=== PATIENT | female | born 1960 | race American Indian/Alaskan Native ===

== ENCOUNTER 2017-12-18 18:41 | Observation (INO) | payer BC ==
[2017-12-18 19:20] VITALS: BMI 20.2
[2017-12-18] MEDS ORDERED: Morphine 2 mg/ml ISec IVP STA (19:50)
[2017-12-18] MEDS ORDERED: Sodium Chloride 0.9% 1,000 ML IV STA (19:50)
[2017-12-18 20:04] LABS: HEMOGLOBIN 13.8 g/dL (12.0-16.0); MEAN CORPUSCULAR HEMOGLOBIN 30.2 pg (25.0-35.0); MEAN CORPUSCULAR HGB CONC 33.2 g/dl (31.0-37.0); MEAN PLATELET VOLUME 9.4 fl (7.0-11.0); RBC 4.57 10^6/uL (3.5-6.1); RED CELL DISTRIBUTION WIDTH 12.5 % (11.5-14.5); WHITE BLOOD COUNT 7.6 10^3/ul (4.5-11.0)
[2017-12-18 20:12] LABS: ALB/GLOB RATIO 1.5 (1.1-1.8); ALT/SGPT 24 U/L (7-56); AST/SGOT 32 U/L (14-36); BLOOD UREA NITROGEN 16 mg/dL (7-21); CALCIUM 10.8 mg/dL (8.4-10.5); GFR AFRICAN-AMERICAN > 60; GFR NON-AFRICAN AMERICAN > 60; LIPASE 29 U/L (23-300)
--- NOTE | 2017-12-18 20:26 | ED PDOC ---
Arrival/HPI - General Chief Complaint: Abdominal Pain Time Seen by Provider: 12/18/17 19:43 Historian: Patient - History of Present Illness Narrative History of Present Illness (Text): 12/18/17 19:45 Ludivina Montenegro is a 57 year old female who presents to the emergency department complaining of onset of multiple episodes of vomiting with associated nausea and abdominal discomfort for the past few days. Patient states that she had eaten at a fast food restaurant prior to onset of symptoms. Patient notes that she has had similar symptoms occurring to her every few months it seems. Patient states that she was prescribed an anti-emetic by PMD over the weekend with no significant relief. Patient denies any diarrhea, fever, chills, or any other complaints at this time. Past Medical History - Provider Review Nursing Documentation Reviewed: Yes - Infectious Disease Hx of Infectious Diseases: None - Tetanus Immunization Tetanus Immunization: Unknown - Reproductive Menopause: Yes - Cardiac Hx Cardiac Disorders: No - Pulmonary Hx Respiratory Disorders: No - Neurological Hx Neurological Disorder: No - HEENT Hx HEENT Disorder: No - Renal Hx Renal Disorder: No - Endocrine/Metabolic Hx Endocrine Disorders: No - Hematological/Oncological Hx Blood Disorders: No - Integumentary Hx Dermatological Disorder: No - Musculoskeletal/Rheumatological Hx Falls: No - Gastrointestinal Hx Gastrointestinal Disorders: Yes Other/Comment: hx stomach virus - Genitourinary/Gynecological Hx Genitourinary Disorders: No - Psychiatric Hx Psychophysiologic Disorder: No Hx Substance Use: No - Surgical History Hx Appendectomy: Yes - Anesthesia Hx Anesthesia: No Hx Anesthesia Reactions: No Hx Malignant Hyperthermia: No - Suicidal Assessment Feels Threatened In Home Enviroment: No Family/Social History - Physician Review Nursing Documentation Reviewed: Yes Family/Social History: No Known Family HX Smoking Status: Light Smoker < 10 Cigarettes Daily Hx Alcohol Use: No Hx Substance Use: No Hx Substance Use Treatment: Yes Allergies/Home Meds Allergies/Adverse Reactions: Allergies No Known Allergies Allergy (Verified 11/18/14 10:53) Home Medications: Home Meds Medication Instructions Recorded Confirmed No Known Home Med 12/18/17 12/18/17 Review of Systems - Physician Review All systems were reviewed & negative as marked: Yes - Review of Systems Constitutional: absent: Fevers, Night Sweats Eyes: absent: Vision Changes ENT: absent: Hearing Changes Respiratory: absent: SOB, Cough Gastrointestinal: Abdominal Pain (abdominal discomfort), Nausea, Vomiting Genitourinary Female: absent: Dysuria, Frequency Musculoskeletal: absent: Arthralgias Skin: absent: Rash, Pruritis Neurological: absent: Headache, Dizziness Endocrine: absent: Diaphoresis Hemo/Lymphatic: absent: Adenopathy Psychiatric: absent: Anxiety, Depression Physical Exam Vital Signs Reviewed: Yes Vital Signs Temp Pulse Resp BP Pulse Ox 12/18/17 18:41 98.6 F 75 18 116/82 97 Temperature: Afebrile Blood Pressure: Normal Pulse: Regular Respiratory Rate: Normal Appearance: Positive for: Well-Appearing, Non-Toxic, Comfortable Pain Distress: None Mental Status: Positive for: Alert and Oriented X 3 - Systems Exam Head: Present: Atraumatic, Normocephalic Pupils: Present: PERRL Extroacular Muscles: Present: EOMI Conjunctiva: Present: Normal Mouth: Present: Dry Neck: Present: Normal Range of Motion Respiratory/Chest: Present: Clear to Auscultation, Good Air Exchange. No: Respiratory Distress, Accessory Muscle Use Cardiovascular: Present: Regular Rate and Rhythm, Normal S1, S2. No: Murmurs Abdomen: Present: Normal Bowel Sounds. No: Tenderness, Distention, Peritoneal Signs Back: Present: Normal Inspection Upper Extremity: Present: Normal Inspection. No: Cyanosis, Edema Lower Extremity: Present: Normal Inspection. No: Edema Neurological: Present: GCS=15, CN II-XII Intact, Speech Normal Skin: Present: Warm, Dry, Normal Color. No: Rashes Psychiatric: Present: Alert, Oriented x 3, Normal Insight, Normal Concentration Medical Decision Making ED Course and Treatment: 12/18/17 20:27 Impression: 57 year old female complaining of onset of vomiting, nausea, and abdominal discomfort for the past few days. Plan: -- Urinalysis -- Morphine, Pepcid, Zofran, and IV fluids -- Reassess and disposition Prior Visits: Notes and results from previous visits were reviewed. Patient was last seen in the emergency department on 09/13/17 for nausea, vomiting, and diffuse abdominal pain. Patient was admitted to hospitalist care for further evaluation. Progress Notes: EXAM: CT Abdomen and Pelvis With Intravenous Contrast Dictated and Authenticated by: Montana Caba MD 12/19/2017 12:46 AM IMPRESSION: 1. There is wall thickening of the body of the stomach as well as the proximal duodenum, suggestive of gastroenteritis. 2. There is wall thickening of the ascending colon with a small diverticulum and mild stable pericolonic stranding. These findings are consistent with colitis or diverticulitis. Additional colonic wall thickening is identified, consistent with incomplete distention or colitis. Due to the persistence of colonic wall thickening, colonoscopy is suggested. 3. There is stable nonspecific thickening of the left adrenal gland. 4. Within the right hepatic lobe on series 3 image 48, there is a 1.7 x 1.3 cm hyperdense lesion, not visualized on the prior study. Also within the right hepatic lobe, there is a 6- 7 mm hypodense lesion, too small to characterize further. A nonemergent MRI of the abdomen with contrast is recommended. 5. The common bile duct measures 7-8 mm in diameter, which is borderline dilated. Mild intrahepatic biliary dilatation is visualized. No discrete gallstones are visualized within the gallbladder. Correlation with serum bilirubin is recommended. 6. Incidental/non-acute findings are described above. 12/19/17 01:11 Case was d/w /He accepted to his service. on consult. - Lab Interpretations Lab Results: 12/18/17 19:49 12/18/17 19:49 Lab Results 12/18/17 23:20: Urine Color Yellow, Urine Appearance Clear, Urine pH 6.0, Ur Specific Andrews >= 1.030, Urine Protein 100 H, Urine Glucose (UA) Negative, Urine Ketones >=80, Urine Blood Negative, Urine Nitrate Negative, Urine Bilirubin Small H, Urine Urobilinogen 0.2, Ur Leukocyte Esterase Negative, Urine RBC 0 - 2, Urine WBC 1 - 3, Ur Epithelial Cells 0 - 2, Urine Bacteria Few 12/18/17 19:49: WBC 7.6, RBC 4.57, Hgb 13.8 D, Hct 41.6, MCV 91.0, MCH 30.2, MCHC 33.2, RDW 12.5, Plt Count 261, MPV 9.4 12/18/17 19:49: Sodium 143, Potassium 3.5 L, Chloride 102, Carbon Dioxide 25, Anion Gap 19, BUN 16, Creatinine 0.7, Est GFR ( Amer) > 60, Est GFR (Non- Af Amer) > 60, Random Glucose 122 H, Calcium 10.8 H, Total Bilirubin 0.5, AST 32 , ALT 24, Alkaline Phosphatase 88, Total Protein 8.4 H, Albumin 5.0 H, Globulin 3.4, Albumin/Globulin Ratio 1.5, Lipase 29 I have reviewed the lab results: Yes - RAD Interpretation Radiology Orders: 12/18/17 22:47 ABD & PELVIS IV CONTRAST ONLY [CT] Stat - Medication Orders Current Medication Orders: Ciprofloxacin (Cipro) 500 mg PO ONCE STA PRN Reason: Protocol Stop: 12/19/17 01:09 Metronidazole (Flagyl) 500 mg in 100 mls @ 100 mls/hr IVPB STAT STA PRN Reason: Protocol Stop: 12/19/17 02:07 Discontinued Medications Famotidine (Pepcid) 20 mg IVP STAT STA Stop: 12/18/17 19:51 Last Admin: 12/18/17 20:04 Dose: 20 mg IVP Administration Document 12/18/17 20:04 SELINA (Rec: 12/18/17 20:04 SELINA [id number]) Charges for Administration # of IVP Administrations 1 Sodium Chloride (Sodium Chloride 0.9%) 1,000 mls @ 999 mls/hr IV .Q1H1M STA Stop: 12/18/17 20:50 Last Admin: 12/18/17 20:06 Dose: 999 mls/hr eMAR Start Stop Document 12/18/17 20:06 SELINA (Rec: 12/18/17 20:06 SELINA [id number]) Intravenous Solution Start Date 12/18/17 Start Time 20:06 End Date 12/18/17 End time 21:06 Total Infusion Time 60 Morphine Sulfate (Morphine) 2 mg IVP STAT STA Stop: 12/18/17 19:51 Last Admin: 12/18/17 20:05 Dose: 2 mg MAR Pain Assessment Document 12/18/17 20:05 SELINA (Rec: 12/18/17 20:05 SELINA [id number]) Pain Reassessment Is this a pain reassessment? Yes IVP Administration Document 12/18/17 20:05 SELINA (Rec: 12/18/17 20:05 SELINA [id number]) Charges for Administration # of IVP Administrations 1 Ondansetron HCl (Zofran Inj) 4 mg IVP ONCE ONE Stop: 12/18/17 19:51 Last Admin: 12/18/17 20:05 Dose: 4 mg IVP Administration Document 12/18/17 20:05 SELINA (Rec: 12/18/17 20:05 SELINA [id number]) Charges for Administration # of IVP Administrations 1 - Scribe Statement The provider has reviewed the documentation as recorded by the Scribe Dia Zaragoza Provider Scribe Attestation: All medical record entries made by the Scribe were at my direction and personally dictated by me. I have reviewed the chart and agree that the record accurately reflects my personal performance of the history, physical exam, medical decision making, and the department course for this patient. I have also personally directed, reviewed, and agree with the discharge instructions and disposition. Disposition/Present on Arrival - Present on Arrival Any Indicators Present on Arrival: No History of DVT/PE: No History of Uncontrolled Diabetes: No Urinary Catheter: No History of Decub. Ulcer: No History Surgical Site Infection Following: None - Disposition Have Diagnosis and Disposition been Completed?: Yes Diagnosis: Colitis Disposition: HOSPITALIZED Disposition Time: 01:10 Patient Plan: Observation Patient Problems: Current Active Problems Problem Status Onset Colitis Acute Condition: STABLE Referrals: Fermin Bethea MD [Primary Care Provider] - Follow up with primary Forms: [employer] ([employer])
[2017-12-18] MEDS ORDERED: Iohexol 350 MG/100 ML VIAL ONE (22:51)
[2017-12-18 23:41] LABS: URINE BILIRUBIN SMALL (NEGATIVE); URINE BLOOD NEGATIVE (NEGATIVE); URINE GLUCOSE (UA) NEGATIVE (NEGATIVE); URINE LEUKOCYTE ESTERASE NEGATIVE Leu/uL (NEGATIVE); URINE NITRATE NEGATIVE (NEGATIVE); URINE PROTEIN 100 mg/dL (<30 mg/dL); URINE UROBILINOGEN 0.2 E.U./dL (<1 E.U./dL)
[2017-12-18 23:46] LABS: URINE APPEARANCE CLEAR (CLEAR); URINE COLOR YELLOW (YELLOW)
[2017-12-18 23:56] LABS: URINE BACTERIA FEW (NEG); URINE EPITHELIAL CELLS 0 - 2 /hpf (0-5); URINE RBC 0 - 2 /hpf (0-2)
--- NOTE | 2017-12-19 00:46 | CT ---
EXAM: CT Abdomen and Pelvis With Intravenous Contrast EXAM DATE/TIME: 12/18/2017 10:47 PM CLINICAL HISTORY: The patient age is 57 years old and is female; Pain; Abdominal pain; Acute Facility exam id and description: Ct abdpelciv abd pelvis iv contrast only TECHNIQUE: Axial computed tomography images of the abdomen and pelvis with intravenous contrast. All CT scans at this facility use one or more dose reduction techniques, viz.: automated exposure control; ma/kV adjustment per patient size (including targeted exams where dose is matched to indication; i.e. head); or iterative reconstruction technique. Coronal and sagittal reformatted images were created and reviewed. CONTRAST: 100 mL of OMNI administered intravenously. COMPARISON: CT - ABD PELVIS IV CONTRAST ONLY 2017-09-13 20:46 FINDINGS: Lower thorax: At the lateral right lung base, there is a 4 mm hyperdense calcified lung nodule. Mild atelectatic changes are visualized at the lung bases. ABDOMEN: Liver: Within the right hepatic lobe on series 3 image 48, there is a 1.7 x 1.3 cm hyperdense lesion, not visualized on the prior study. Also within the right hepatic lobe, there is a 6-7 mm hypodense lesion, too small to characterize further. There is low density identified within the medial segment of the left lobe of the liver adjacent to the falciform ligament. This is a common location for fatty infiltration. Gallbladder and bile ducts: The common bile duct measures 7-8 mm in diameter, which is borderline dilated. Mild intrahepatic biliary dilatation is visualized. No discrete gallstones are visualized within the gallbladder. Pancreas: Normal contour, without acute peripancreatic stranding. Spleen: No splenomegaly. Adrenals: There is stable nonspecific thickening of the left adrenal gland. Kidneys and ureters: No hydronephrosis. No solid mass. Stomach and bowel: There is wall thickening of the body of the stomach as well as the proximal duodenum, suggestive of gastroenteritis. There is wall thickening of the ascending colon with a small diverticulum and mild stable pericolonic stranding. These findings are consistent with colitis or diverticulitis. Additional colonic wall thickening is identified, consistent with incomplete distention or colitis. There is gaseous distention of the rectum. Appendix: The appendix is incompletely visualized. PELVIS: Bladder: The bladder is decompressed, which limits the evaluation. Reproductive: Unremarkable as visualized. ABDOMEN and PELVIS: Intraperitoneal space: No free air. Bones/joints: Facet arthropathy is identified within the lower lumbar spine. Degenerative changes are identified within the lumbar spine. Vasculature: Minimal atherosclerosis is visualized of the abdominal aorta. No abdominal aortic aneurysm. Lymph nodes: No enlarged lymph nodes. IMPRESSION: 1. There is wall thickening of the body of the stomach as well as the proximal duodenum, suggestive of gastroenteritis. 2. There is wall thickening of the ascending colon with a small diverticulum and mild stable pericolonic stranding. These findings are consistent with colitis or diverticulitis. Additional colonic wall thickening is identified, consistent with incomplete distention or colitis. Due to the persistence of colonic wall thickening, colonoscopy is suggested. 3. There is stable nonspecific thickening of the left adrenal gland. 4. Within the right hepatic lobe on series 3 image 48, there is a 1.7 x 1.3 cm hyperdense lesion, not visualized on the prior study. Also within the right hepatic lobe, there is a 6-7 mm hypodense lesion, too small to characterize further. A nonemergent MRI of the abdomen with contrast is recommended. 5. The common bile duct measures 7-8 mm in diameter, which is borderline dilated. Mild intrahepatic biliary dilatation is visualized. No discrete gallstones are visualized within the gallbladder. Correlation with serum bilirubin is recommended. 6. Incidental/non-acute findings are described above.
[2017-12-19] MEDS ORDERED: metroNIDAZOLE IV 500 mg/100 ml 500 MG/100 ML BAG IVPB STA (01:08)
[2017-12-19] MEDS ORDERED: Sodium Chloride 0.9% 1,000 ML IV STA (01:14)
[2017-12-19 08:25] VITALS: RESP 20
[2017-12-19] MEDS: Sodium Chloride 0.9% 1,000 ML IV SCH (13:42)
[2017-12-19] MEDS: metroNIDAZOLE IV 500 mg/100 ml 500 MG/100 ML BAG IVPB SCH ×2 (15:12→21:56)
[2017-12-19] MEDS: cefTRIAXone 1 gm 1 GM/100 ML BAG IVPB SCH (16:59)
--- NOTE | 2017-12-19 17:29 | CP.PCM.CON ---
<Jahaira Vann - Last Filed: 12/19/17 17:41> History of Present Illness - History of Present Illness History of Present Illness: S&E at bedside, chart reviewed. Request for GI consult is for abdominal pain/vomiting. HPI: This is a 57-year-old female with no pertinent past medical history except for stomach virus. Patient came to the emergency room with complaint of onset of multiple episodes of nausea with vomiting and abdominal discomfort left lower quadrant. The patient stated that this symptom started on Monday morning but was intermittent. After eating [employer] her symptoms got worse. She did not have any episodes of diarrhea and fact her last bowel movement was last Monday. She reports that she normally has a regular bowel movement but the past week it been dark in color and watery. Denies any fever or chills, sick contacts or recent antibiotic use. No complaints of unintentional weight loss but reports that her weight fluctuates 110-98 and nothing less than thisShe denies any loss of appetite. Occasional acid reflux with no need for [id number] therapy. She may have headache once in a while and may take Advil. Last dose of Advil was on Monday. He denies having endoscopy or colonoscopy. She did report that feels as if she gets these pains every couple months. She was last seen in emergency room on September 13, 2017 with similar complaints, and CT scan was reviewed at that time and it showed diffuse colonic thickening nonspecific colitis and pre-pyloric channel thickening. On this admission she did have a CT scan of abdomen and pelvis with IV and oral contrast , this reported wall thickening in the stomach suggestive of gastroenteritis, wall thickening in the descending colon with small diverticulum and stable pericolonic stranding consistent with colitis or diverticulitis. Also noted on CAT scan was right hepatic lobe hyperdense lesion measuring 1.7 x 1.3 cm as well as a hypodense lesion in 6-7 mm in the right hepatic lobe too small to characterize further. She is also noted to have CBD measuring at 7.8 mm, borderline dilation. Past medical history: Stomach virus Surgical history: Appendectomy Family history: Father with diabetes, no known family history of cancer Social history smokes less than 10 cigarettes a day, denies EtOH, may smoke marijuana once in a while Medications: Reviewed as per MAR Allergies: No known drug allergies ROS: Systems reviewed a positive findings see HPI Past Patient History - Infectious Disease Hx of Infectious Diseases: None - Tetanus Immunizations Tetanus Immunization: Unknown - Past Social History Smoking Status: Never Smoked - CARDIAC Hx Cardiac Disorders: No - PULMONARY Hx Respiratory Disorders: No - NEUROLOGICAL Hx Neurological Disorder: No - HEENT Hx HEENT Problems: No - RENAL Hx Chronic Kidney Disease: No - ENDOCRINE/METABOLIC Hx Endocrine Disorders: No - HEMATOLOGICAL/ONCOLOGICAL Hx Blood Disorders: No - INTEGUMENTARY Hx Dermatological Problems: No - MUSCULOSKELETAL/RHEUMATOLOGICAL Hx Falls: No - GASTROINTESTINAL Hx Gastrointestinal Disorders: Yes Other/Comment: hx stomach virus - GENITOURINARY/GYNECOLOGICAL Hx Genitourinary Disorders: No - PSYCHIATRIC Hx Psychophysiologic Disorder: No Hx Substance Use: Yes - SURGICAL HISTORY Hx Appendectomy: Yes - ANESTHESIA Hx Anesthesia: No Hx Anesthesia Reactions: No Hx Malignant Hyperthermia: No Meds Allergies/Adverse Reactions: Allergies Allergy/AdvReac Type Severity Reaction Status Date / Time No Known Allergies Allergy Verified 11/18/14 10:53 - Medications Medications: Current Medications Sodium Chloride (Sodium Chloride 0.9%) 1,000 mls @ 120 mls/hr IV .Q8H20M [facility] Pantoprazole Sodium (Protonix Inj) 40 mg IVP DAILY [facility] Physical Exam - Constitutional Appears: No Acute Distress - Head Exam Head Exam: NORMOCEPHALIC - Eye Exam Eye Exam: Normal appearance. absent: Scleral icterus - ENT Exam ENT Exam: Mucous Membranes Moist - Neck Exam Neck exam: Positive for: Normal Inspection - Respiratory Exam Respiratory Exam: Clear to Auscultation Bilateral, NORMAL BREATHING PATTERN. absent: Respiratory Distress - Cardiovascular Exam Cardiovascular Exam: +S1, +S2 - GI/Abdominal Exam GI & Abdominal Exam: Normal Bowel Sounds, Soft, Tenderness (left lower quadrant and epigastric tenderness). absent: Distended, Guarding, Organomegaly, Rebound - Extremities Exam Extremities exam: Positive for: pedal pulses present. Negative for: calf tenderness, pedal edema - Neurological Exam Neurological exam: Alert, Oriented x3 - Skin Skin Exam: Dry, Warm Results - Vital Signs Recent Vital Signs: Last Vital Signs Temp 98.2 F 12/19/17 07:00 Pulse 64 12/19/17 07:00 Resp 20 12/19/17 07:00 BP 104/53 L 12/19/17 07:00 Pulse Ox 97 12/19/17 07:00 - Labs Result Diagrams: 12/18/17 19:49 02/12/18 19:49 Assessment & Plan - Assessment and Plan (Free Text) Assessment: Assessment: Abdominal pain/nausea/vomiting differentials to consider is gastroenteritis Abnormal CT scan reporting hepatic lesions, colonic thickening, colitis versus diverticulitis rule out inflammatory, infectious or ischemic may be less likely Plan: change diet to clear liquid Start Rocephin 1 g daily Continue Flagyl 500 mg every 8 hours Start Protonix daily Will request for MRI of the abdomen with and without contrast, further evaluate , will add MRCP to evaluate CBD dilitation Discussed with patient and she would benefit from endoscopy/colonoscopy when optimal. Thank you for this consult and for allowing us to participate in your patient's care, further recommendations upon clinical course. Seen and discussed with Dr. Luo. <Rolando Luo V - Last Filed: 12/19/17 23:57> Meds - Medications Medications: Current Medications Sodium Chloride (Sodium Chloride 0.9%) 1,000 mls @ 120 mls/hr IV .Q8H20M [facility] Last Admin: 12/19/17 13:42 Dose: 120 mls/hr Metronidazole (Flagyl) 500 mg in 100 mls @ 100 mls/hr IVPB Q8 [facility] PRN Reason: Protocol Last Admin: 12/19/17 21:56 Dose: 100 mls/hr Ceftriaxone Sodium (Rocephin 1 Gram Ivpb) 1 gm in 100 mls @ 100 mls/hr IVPB DAILY [facility] PRN Reason: Protocol Stop: 12/23/17 10:59 Last Admin: 12/19/17 16:59 Dose: 100 mls/hr Pantoprazole Sodium (Protonix Inj) 40 mg IVP DAILY [facility] Last Admin: 12/19/17 13:52 Dose: 40 mg Results - Vital Signs Recent Vital Signs: Last Vital Signs Temp 99.2 F 12/19/17 16:00 Pulse 58 L 12/19/17 16:00 Resp 20 12/19/17 16:00 BP 119/74 12/19/17 16:00 Pulse Ox 100 12/19/17 16:00 - Labs Result Diagrams: 12/18/17 19:49 12/18/17 19:49 Attending/Attestation - Attestation I have personally seen and examined this patient.: Yes I have fully participated in the care of the patient.: Yes I have reviewed all pertinent clinical information: Yes Notes (Text): This is an addendum to GI consult report dictated by Jahaira Vann APN.The patient was seen and examined earlier. Medical records, lab studies, imagings were reviewed. Last 24 hours events reviewed. Agreed with the above treatment plan as outlined in Jahaira Vann APN's notes the with the addition of the following 12/19/17 23:57
[2017-12-20] MEDS: Sodium Chloride 0.9% 1,000 ML IV SCH (02:01)
[2017-12-20] MEDS: metroNIDAZOLE IV 500 mg/100 ml 500 MG/100 ML BAG IVPB SCH (06:48)
[2017-12-20 07:45] VITALS: BP 128/71; PULSE 55; TEMP 98.2; O2SAT 98
[2017-12-20] MEDS ORDERED: Gadodiamide 287 MG/ML VIAL (15ML) IV ONE (08:48)
[2017-12-20] MEDS: cefTRIAXone 1 gm 1 GM/100 ML BAG IVPB SCH (09:54)
--- NOTE | 2017-12-20 12:53 | CP.PCM.PN ---
<Jahaira Vann - Last Filed: 12/20/17 12:51> Subjective - Date & Time of Evaluation Date of Evaluation: 12/20/17 Time of Evaluation: 10:30 - Subjective Subjective: Seen and examined at the bedside earlier today, chart review. Patient went for MRCP, this morning report pending. Patient reports no abdominal pain, tolerating clear liquid diet, no BM. No new GI complaints.denies fever chills, shortness of breath or chest pain. Objective - Vital Signs/Intake and Output Vital Signs (last 24 hours): Temp Pulse Resp BP Pulse Ox 98.2 F 55 L 20 128/71 98 12/20/17 07:00 12/20/17 07:00 12/20/17 07:00 12/20/17 07:00 12/20/17 07:00 Intake and Output: 12/20/17 12/20/17 06:59 18:59 Intake Total 120 Balance 120 - Medications Medications: Current Medications Sodium Chloride (Sodium Chloride 0.9%) 1,000 mls @ 120 mls/hr IV .Q8H20M [facility] Last Admin: 12/20/17 02:01 Dose: 120 mls/hr Metronidazole (Flagyl) 500 mg in 100 mls @ 100 mls/hr IVPB Q8 [facility] PRN Reason: Protocol Last Admin: 12/20/17 06:48 Dose: 100 mls/hr Ceftriaxone Sodium (Rocephin 1 Gram Ivpb) 1 gm in 100 mls @ 100 mls/hr IVPB DAILY [facility] PRN Reason: Protocol Stop: 12/23/17 10:59 Last Admin: 12/20/17 09:54 Dose: 100 mls/hr Pantoprazole Sodium (Protonix Inj) 40 mg IVP DAILY [facility] Last Admin: 12/20/17 09:54 Dose: 40 mg - Constitutional Appears: No Acute Distress - Eye Exam Eye Exam: Normal appearance. absent: Scleral icterus - ENT Exam ENT Exam: Mucous Membranes Moist - Neck Exam Neck Exam: Normal Inspection - Respiratory Exam Respiratory Exam: Clear to Ausculation Bilateral, NORMAL BREATHING PATTERN. absent: Respiratory Distress - Cardiovascular Exam Cardiovascular Exam: +S1, +S2 - GI/Abdominal Exam GI & Abdominal Exam: Soft, Normal Bowel Sounds. absent: Guarding, Tenderness, Rebound - Extremities Exam Extremities Exam: Normal Capillary Refill. absent: Calf Tenderness, Pedal Edema - Neurological Exam Neurological Exam: Alert, Awake, Oriented x3 - Skin Skin Exam: Dry, Warm Assessment and Plan - Assessment and Plan (Free Text) Assessment: Assessment: Resolved Abdominal pain/nausea/vomiting differentials to consider is gastroenteritis Abnormal CT scan reporting hepatic lesions, colonic thickening, colitis versus diverticulitis rule out inflammatory, infectious or ischemic may be less likely Plan: advance diet to soft low residual on Rocephin and Flagyl continue PPI Follow up MRI/MRCP From GI point of view patient can be discharged home to continue with oral antibiotics: Cipro 500 twice a day and Flagyl 250 4 times a day to complete a total of 7 days of antibiotics, and to follow up in our outpatient office in 1- 2 weeks and discuss elective EGD and outpatient colonoscopy. This was discussed with the patient. Also discussed with patient's nurse DEAN Khoury. Seen and discussed with Dr. Luo. <Rolando Luo V - Last Filed: 12/20/17 23:17> Objective - Vital Signs/Intake and Output Vital Signs (last 24 hours): Temp Pulse Resp BP Pulse Ox 98.2 F 55 L 20 128/71 98 12/20/17 07:00 12/20/17 07:00 12/20/17 07:00 12/20/17 07:00 12/20/17 07:00 Attending/Attestation - Attestation I have personally seen and examined this patient.: Yes I have fully participated in the care of the patient.: Yes I have reviewed all pertinent clinical information, including history, physical exam and plan: Yes Notes (Text): This is an addendum to GI progress report dictated by Jahaira Vann APN.The patient was seen and examined earlier. Medical records, lab studies, imagings were reviewed. Last 24 hours events reviewed. Agreed with the above treatment plan as outlined in Jahaira Vann APN's notes the with the addition of the following 12/20/17 23:16
--- NOTE | 2017-12-20 16:54 | MRI ---
PROCEDURE: Magnetic Resonance Cholangiopancreatography HISTORY: COMPARISON: Abdomen pelvis CT with contrast 12/18/2017. TECHNIQUE: Multiplanar, multisequence MR images of the abdomen were obtained, including heavily T2 weighted MRCP images of the biliary system. Rotating maximum intensity projection images of the biliary system were generated. FINDINGS: MRCP: The common bile duct is of a normal caliber. No evidence of choledocholithiasis. No intrahepatic biliary ductal dilatation. LIVER: There is a small ovoid lesion increase with long TR signal and diminished under T1 weighting measuring proxy 1 cm greatest dimension at the right lobe laterally. Exhibits peripheral nodular enhancement with near-complete fill-in at the final T1 enhanced series suggestive of a benign hemangioma. No definite intrahepatic biliary dilatation is identified. GALLBLADDER: Gallbladder is mild to mildly distended and otherwise appears unremarkable. No cholelithiasis is seen related. SPLEEN: Unremarkable. PANCREAS: Unremarkable. ADRENALS: No definitive adrenal mass appreciable bilaterally. KIDNEYS: Unremarkable. AORTA: No aneurysm. ASCITES: None. OTHER FINDINGS: None. IMPRESSION: 1. No significant biliary tree dilatation, including CBD. No choledocholithiasis. 2. 1 cm benign hemangioma is appreciated at the right lobe liver with no additional hepatic pathology appreciable. 3. No definitive adrenal mass appreciable bilaterally.
== END 2017-12-20 12:56 | disposition home or self-care (01) ==
LOC: ED 18:41 → ERH 12-19 01:13 → 5RSO 12-19 02:26
PROVIDERS: ADMIT Internal Medicine; ATTEND Internal Medicine
DX: K52.9 Noninfective gastroenteritis and colitis, unspecified (principal); K57.92 Diverticulitis of intestine, part unspecified, without perforation or abscess without bleeding; F17.210 Nicotine dependence, cigarettes, uncomplicated; Z83.3 Family history of diabetes mellitus; Z90.49 Acquired absence of other specified parts of digestive tract
CPT/HCPCS: 74177; 74183; 80053; 81001; 83690; 85027; 96361; 96365; 96366; 96375; 96376; 99284; A9579; C9113; G0378; J0696; J2270; J2405; J7040; Q9967

== ENCOUNTER 2018-01-17 16:36 | Emergency (ER) | payer BC ==
[2018-01-17 16:55] VITALS: BMI 20.5
[2018-01-17 16:58] VITALS: RESP 18; TEMP 98.6
[2018-01-17] MEDS: Lactated Ringer's 1,000 ML IV SCH (18:07)
--- NOTE | 2018-01-17 18:24 | ED PDOC ---
Arrival/HPI - General Chief Complaint: GI Problem Time Seen by Provider: 01/17/18 17:58 Historian: Patient EM Caveat: Acuity of Condition - History of Present Illness Narrative History of Present Illness (Text): 01/17/18 18:17 Ludivina Montenegro is a 57 year old female who presents to the emergency department complaining of ongoing multiple episodes of vomiting with associated nausea and abdominal discomfort for the past month. Patient states that she has been assessed and admitted to [facility] [place] [place] for the same symptoms and was given antibiotics on discharge that she completed but has no change in status. Patient reports that she the same symptoms occurring to her every few months which might be due to 'kissing' her dogs. Despite getting IV and PO antibiotics she continues to have on-going nausea, vomiting, and diarrhea daily. States she feels very dehydrated despite drinking water and gatorade; she cannot keep it down Patient denies any fever, chills, or any other complaints at this time. Time/Duration: > month Symptom Onset: Gradual Symptom Course: Unchanged Severity Level: 2 Activities at Onset: Rest Context: Home, Work Past Medical History - Provider Review Nursing Documentation Reviewed: Yes - Travel History Have you recently traveled outside [place] w/in the past 3 mons?: No - Infectious Disease Hx of Infectious Diseases: None - Tetanus Immunization Tetanus Immunization: Unknown - Cardiac Hx Cardiac Disorders: No - Pulmonary Hx Respiratory Disorders: No - Neurological Hx Neurological Disorder: No - HEENT Hx HEENT Disorder: No - Renal Hx Renal Disorder: No - Endocrine/Metabolic Hx Endocrine Disorders: No - Hematological/Oncological Hx Blood Disorders: No - Integumentary Hx Dermatological Disorder: No - Musculoskeletal/Rheumatological Hx Falls: No - Gastrointestinal Hx Gastrointestinal Disorders: Yes Other/Comment: hx stomach virus - Genitourinary/Gynecological Hx Genitourinary Disorders: No - Psychiatric Hx Psychophysiologic Disorder: No Hx Substance Use: Yes - Surgical History Hx Appendectomy: Yes - Anesthesia Hx Anesthesia: Yes Hx Anesthesia Reactions: No Hx Malignant Hyperthermia: No - Suicidal Assessment Feels Threatened In Home Enviroment: No Family/Social History - Physician Review Nursing Documentation Reviewed: Yes Family/Social History: Unknown Family HX Smoking Status: Heavy Smoker > 10 Cigarettes Daily Hx Alcohol Use: No Hx Substance Use: Yes Hx Substance Use Treatment: Yes Allergies/Home Meds Allergies/Adverse Reactions: Allergies No Known Allergies Allergy (Verified 01/13/15 10:53) Review of Systems - Physician Review All systems were reviewed & negative as marked: Yes - Review of Systems Constitutional: Normal Eyes: Normal ENT: Normal Respiratory: Normal Cardiovascular: Normal Gastrointestinal: Abdominal Pain, Diarrhea, Nausea, Vomiting Genitourinary Female: Normal Musculoskeletal: Normal Skin: Normal Neurological: Normal Endocrine: Normal Hemo/Lymphatic: Normal Psychiatric: Normal Physical Exam Vital Signs Reviewed: Yes Vital Signs Temp Pulse Resp BP Pulse Ox 01/17/18 20:15 85 18 112/75 97 01/17/18 16:55 98.6 F 83 18 119/84 96 Temperature: Afebrile Blood Pressure: Normal Pulse: Regular Respiratory Rate: Normal Appearance: Positive for: Non-Toxic, Comfortable Pain Distress: Mild Mental Status: Positive for: Alert and Oriented X 3 - Systems Exam Head: Present: Atraumatic, Normocephalic Pupils: Present: PERRL Extroacular Muscles: Present: EOMI Conjunctiva: Present: Normal Mouth: Present: Dry Neck: Present: Normal Range of Motion Respiratory/Chest: Present: Clear to Auscultation, Good Air Exchange. No: Respiratory Distress, Accessory Muscle Use Cardiovascular: Present: Regular Rate and Rhythm, Normal S1, S2. No: Murmurs Abdomen: Present: Tenderness (midline with right and left referral at times), Normal Bowel Sounds. No: Distention, Peritoneal Signs Back: Present: Normal Inspection Upper Extremity: Present: Normal Inspection. No: Cyanosis, Edema Lower Extremity: Present: Normal Inspection. No: Edema Neurological: Present: GCS=15, CN II-XII Intact, Speech Normal Skin: Present: Warm, Dry, Normal Color. No: Rashes Psychiatric: Present: Alert, Oriented x 3, Normal Insight, Normal Concentration Medical Decision Making ED Course and Treatment: 01/17/18 18:24 Impression Ludivina Montenegro is a 57 year old female who presents to the emergency department complaining of ongoing multiple episodes of vomiting with associated nausea and abdominal discomfort for the past month. On exam, diffuse mid-abdominal tenderness on palpation, mucus membranes appear dry, no LAD, lungs CTAB and nl s1 and s2 Plan Labs and fluids (LR) Zofran for nausea Will speak w her PMD when he visits her bedside Assess and dispo Progress Note Pt continues to have vomiting; discussed lab results with patient Intractable vomiting despite 8 mg Zofran and Reglan on hold prn Head CT to r/o tumor-->unremarkable Spoke with Dr. Bethea, who saw pt bedside; advised to dc home with daron and jorge and follow up with Dr. Jaramillo, GI specialist Pt stable at discharge; discussed medication use and SEs - Lab Interpretations Lab Results: 01/17/18 18:15 01/17/18 18:15 Lab Results 01/17/18 18:15: Sodium 145, Potassium 4.2, Chloride 102, Carbon Dioxide 27, Anion Gap 20, BUN 15, Creatinine 0.7, Est GFR ( Amer) > 60, Est GFR (Non- Af Amer) > 60, Random Glucose 103, Calcium 10.9 H, Total Bilirubin 0.6, AST 38 H , ALT 28, Alkaline Phosphatase 85, Total Protein 9.4 H, Albumin 5.4 H, Globulin 4.0, Albumin/Globulin Ratio 1.3 01/17/18 18:15: WBC 7.7, RBC 4.84, Hgb 15.0, Hct 43.9, MCV 90.7, MCH 31.0, MCHC 34.2, RDW 12.4, Plt Count 253, MPV 9.7, Gran % 77.5 H, Lymph % (Auto) 18.2 L, [place] % (Auto) 3.9, Eos % (Auto) 0.0 L, Baso % (Auto) 0.4, Gran # 5.98, Lymph # ( Auto) 1.4, [place] # (Auto) 0.3, Eos # (Auto) 0.0, Baso # (Auto) 0.03 I have reviewed the lab results: Yes - RAD Interpretation Narrative RAD Interpretations (Text): 01/18/18 14:[address] FINDINGS: Brain: The white-beck differentiation is preserved demonstrating no acute territorial type infarct. No acute intracranial hemorrhage is seen. There are calcifications within the globus pallidus bilaterally, which are likely physiologic. Midline shift: There is no midline shift. Ventricles: No ventriculomegaly. Bones/joints: There is diffuse nonspecific sclerosis involving the skull. The calvarium demonstrates no evidence for a depressed fracture. Soft tissues: No acute abnormality. Sinuses: There is a small hyperdense osteoma within the left frontal sinus. No air-fluid levels. Mastoid air cells: No mastoid effusion. IMPRESSION: 1. No acute intracranial abnormality. 2. Incidental/non-acute findings are described above. Radiology Orders: 01/17/18 19:40 HEAD W/O CONTRAST [CT] Stat - EKG Interpretation Interpreted by ED Physician: Yes - Medication Orders Current Medication Orders: Discontinued Medications Lactated Ringer's (Lactated Ringer's) 1,000 mls @ 500 mls/hr IV .Q2H [facility] Last Admin: 01/17/18 18:07 Dose: 500 mls/hr eMAR Start Stop Document 01/17/18 18:07 EQ (Rec: 01/17/18 18:07 EQ [id number]) Intravenous Solution Start Date 01/17/18 Start Time 18:07 Metoclopramide HCl (Reglan) 10 mg IVP STAT PRN PRN Reason: Indigestion / Heartburn Morphine Sulfate (Morphine) 2 mg IVP STAT STA Stop: 01/17/18 18:49 Last Admin: 01/17/18 19:26 Dose: 2 mg MAR Pain Assessment Document 01/17/18 19:26 EQ (Rec: 01/17/18 19:26 EQ [id number]) Pain Reassessment Is this a pain reassessment? No Sleep Is patient sleeping during reassessment? No Presence of Pain Presence of Pain Yes IVP Administration Document 01/17/18 19:26 EQ (Rec: 01/17/18 19:26 EQ [id number]) Charges for Administration # of IVP Administrations 1 Ondansetron HCl (Zofran Inj) 4 mg IVP STAT STA Stop: 01/17/18 18:02 Last Admin: 01/17/18 18:07 Dose: 4 mg IVP Administration Document 01/17/18 18:07 EQ (Rec: 01/17/18 18:07 EQ [id number]) Charges for Administration # of IVP Administrations 1 Ondansetron HCl (Zofran Inj) 4 mg IVP STAT STA Stop: 01/17/18 19:33 Last Admin: 01/17/18 19:30 Dose: 4 mg IVP Administration Document 01/17/18 19:30 EQ (Rec: 01/17/18 20:44 EQ [id number]) Charges for Administration # of IVP Administrations 1 Disposition/Present on Arrival - Present on Arrival Any Indicators Present on Arrival: Yes History of DVT/PE: No History of Uncontrolled Diabetes: No Urinary Catheter: No History of Decub. Ulcer: No History Surgical Site Infection Following: None - Disposition Have Diagnosis and Disposition been Completed?: Yes Diagnosis: Gastroenteritis, Vomiting and diarrhea, Abdominal pain Disposition: HOME/ ROUTINE Disposition Time: 20:37 Patient Plan: Discharge Condition: STABLE Discharge Instructions (ExitCare): Nausea and Vomiting, Adult (DC), Gastritis ( DC), Viral Gastroenteritis, Adult (DC) Additional Instructions: Dear Ludivina, Take the Zofran every 8 hours along with the Pepcid every 12 hrs to prevent nausea and vomiting and allow you to start eating and drinking. Choose a soft and liquid diet, avoiding sugar, spice, greasy foods and dairy until your symptoms subside. Follow up with your Primary doctor in the next 1-2 days to talk about your current visit. Should you have worsening symptoms in the next 12-24 hrs, return to the emergency department. All the best in your recovery Prescriptions: Ciprofloxacin [Cipro] 500 mg PO Q12 #14 tab Famotidine [Pepcid] 20 mg PO Q12 #14 tab Metronidazole [Flagyl] 500 mg PO Q8 7 Days #21 tablet Ondansetron [Zofran] 4 mg PO Q8H #15 tab Referrals: Fermin Bethea MD [Primary Care Provider] - Follow up with primary Forms: [employer] (German)
[2018-01-17 18:32] LABS: BASO # 0.03 K/mm3 (0.0-2.0); BASO % 0.4 % (0.0-3.0); GRAN # 5.98 (1.4-6.5); GRAN % 77.5 % (50.0-68.0); LYMPH # 1.4 (1.2-3.4); LYMPH % 18.2 % (22.0-35.0); MEAN CELL VOLUME 90.7 fl (80.0-105.0); MEAN CORPUSCULAR HGB CONC 34.2 g/dl (31.0-37.0); MEAN PLATELET VOLUME 9.7 fl (7.0-11.0); MONO # 0.3 (0.1-0.6); MONO % 3.9 % (1.0-6.0); RBC 4.84 10^6/uL (3.5-6.1); RED CELL DISTRIBUTION WIDTH 12.4 % (11.5-14.5); WHITE BLOOD COUNT 7.7 10^3/ul (4.5-11.0)
[2018-01-17 18:38] LABS: ALB/GLOB RATIO 1.3 (1.1-1.8); ALBUMIN 5.4 g/dL (3.0-4.8); CALCIUM 10.9 mg/dL (8.4-10.5); GFR AFRICAN-AMERICAN > 60; GFR NON-AFRICAN AMERICAN > 60
[2018-01-17 18:55] LABS: ALT/SGPT 28 U/L (7-56); AST/SGOT 38 U/L (14-36); BLOOD UREA NITROGEN 15 mg/dL (7-21)
[2018-01-17] MEDS: Morphine 2 mg/ml ISec IVP STA (19:26)
[2018-01-17 20:44] VITALS: BP 112/75; PULSE 85; O2SAT 97
--- NOTE | 2018-01-17 20:49 | CT ---
EXAM: CT Head Without Intravenous Contrast EXAM DATE/TIME: 01/17/2018 7:40 PM CLINICAL HISTORY: The patient age is 57 years old and is female; Signs and symptoms; Other: Intractable vomiting Facility exam id and description: Ct heads head w/o contrast TECHNIQUE: Axial computed tomography images of the head/brain without intravenous contrast. All CT scans at this facility use one or more dose reduction techniques, viz.: automated exposure control; ma/kV adjustment per patient size (including targeted exams where dose is matched to indication; i.e. head); or iterative reconstruction technique. Coronal and sagittal reformatted images were created and reviewed. COMPARISON: No relevant prior studies available. FINDINGS: Brain: The white-beck differentiation is preserved demonstrating no acute territorial type infarct. No acute intracranial hemorrhage is seen. There are calcifications within the globus pallidus bilaterally, which are likely physiologic. Midline shift: There is no midline shift. Ventricles: No ventriculomegaly. Bones/joints: There is diffuse nonspecific sclerosis involving the skull. The calvarium demonstrates no evidence for a depressed fracture. Soft tissues: No acute abnormality. Sinuses: There is a small hyperdense osteoma within the left frontal sinus. No air-fluid levels. Mastoid air cells: No mastoid effusion. IMPRESSION: 1. No acute intracranial abnormality. 2. Incidental/non-acute findings are described above.
== END 2018-01-17 21:05 | disposition home or self-care (01) ==
LOC: ED 16:36
DX: K52.9 Noninfective gastroenteritis and colitis, unspecified (principal)
CPT/HCPCS: 70450; 80053; 85025; 96374; 96375; 96376; 99284; J2270; J2405; J7120

== ENCOUNTER 2018-01-24 09:46 | Inpatient (IN) | payer BC ==
[2018-01-24 09:46] VITALS: BMI 20.5
[2018-01-24] MEDS ORDERED: Sodium Chloride 0.9% 1,000 ML IV STA (10:20)
--- NOTE | 2018-01-24 10:20 | ED PDOC ---
Arrival/HPI - General Chief Complaint: Abdominal Pain Time Seen by Provider: 01/24/18 10:04 Historian: Patient - History of Present Illness Narrative History of Present Illness (Text): 01/24/18 10:20 Ludivina Bernstein is a 57 year old female who presents to the emergency department complaining of ongoing multiple episodes of vomiting with associated nausea and abdominal discomfort for the past month. Patient stated she was recently seen here, and discharge home with ABX. Patient stated symptoms persist. Denies sob , cp, urinary symptoms, rectal bleeding, fever, recent travel, or sick contact. Time/Duration: Other (see hpi) Context: Home Past Medical History - Provider Review Nursing Documentation Reviewed: Yes - Infectious Disease Hx of Infectious Diseases: None - Tetanus Immunization Tetanus Immunization: Unknown - Reproductive Menopause: Yes - Cardiac Hx Cardiac Disorders: No - Pulmonary Hx Respiratory Disorders: No - Neurological Hx Neurological Disorder: No - HEENT Hx HEENT Disorder: No - Renal Hx Renal Disorder: No - Endocrine/Metabolic Hx Endocrine Disorders: No - Hematological/Oncological Hx Blood Disorders: No - Integumentary Hx Dermatological Disorder: No - Musculoskeletal/Rheumatological Hx Falls: No - Gastrointestinal Hx Gastrointestinal Disorders: Yes Other/Comment: hx stomach virus - Genitourinary/Gynecological Hx Genitourinary Disorders: No - Psychiatric Hx Psychophysiologic Disorder: No Hx Substance Use: Yes - Surgical History Hx Appendectomy: Yes - Anesthesia Hx Anesthesia: Yes Hx Anesthesia Reactions: No Hx Malignant Hyperthermia: No - Suicidal Assessment Feels Threatened In Home Enviroment: No Family/Social History - Physician Review Nursing Documentation Reviewed: Yes Family/Social History: Other (noncontributory) Smoking Status: Heavy Smoker > 10 Cigarettes Daily Hx Alcohol Use: No Hx Substance Use: Yes Hx Substance Use Treatment: Yes Allergies/Home Meds Allergies/Adverse Reactions: Allergies No Known Allergies Allergy (Verified 01/24/18 09:53) Review of Systems - Review of Systems Constitutional: Normal. absent: Fatigue, Weight Change, Fevers, Night Sweats Eyes: Normal ENT: Normal Respiratory: Normal Cardiovascular: Normal Gastrointestinal: Abdominal Pain, Diarrhea, Nausea, Vomiting. absent: Constipation, Appetite Changes, Hematochezia, Hematemesis, Anorexia, Food Intolerance Genitourinary Female: Normal. absent: Dysuria, Frequency, Hematuria, Vaginal Bleeding, Vaginal Discharge Musculoskeletal: Normal. absent: Back Pain Skin: Normal. absent: Rash Neurological: Normal. absent: Headache, Dizziness, Focal Weakness, Gait Changes , Speech Changes, Facial Droop, Disequilibrium, Seizure Endocrine: Normal Hemo/Lymphatic: Normal Psychiatric: Normal Physical Exam Vital Signs Temp Pulse Resp BP Pulse Ox 01/24/18 09:54 98.3 F 106 H 16 114/81 96 Temperature: Afebrile Blood Pressure: Normal Pulse: Tachycardic Respiratory Rate: Normal Appearance: Positive for: Well-Appearing, Non-Toxic, Comfortable Pain Distress: None Mental Status: Positive for: Alert and Oriented X 3 - Systems Exam Head: Present: Atraumatic, Normocephalic Pupils: Present: PERRL Extroacular Muscles: Present: EOMI Conjunctiva: Present: Normal Mouth: Present: Moist Mucous Membranes Neck: Present: Normal Range of Motion Respiratory/Chest: Present: Clear to Auscultation, Good Air Exchange. No: Respiratory Distress, Accessory Muscle Use Cardiovascular: Present: Regular Rate and Rhythm, Normal S1, S2. No: Murmurs Abdomen: Present: Tenderness (mild generalized abdominal tenderness s/p appendectomy), Normal Bowel Sounds, Scars. No: Distention, Peritoneal Signs Back: Present: Normal Inspection. No: CVA Tenderness, Paraspinal Tenderness, Pain with Leg Raise, Decubitus Ulcer Upper Extremity: Present: Normal Inspection, Normal ROM, NORMAL PULSES, Neurovascularly Intact, Capillary Refill < 2s. No: Cyanosis, Edema Lower Extremity: Present: Normal Inspection, NORMAL PULSES, Normal ROM, Neurovascularly Intact, Capillary Refill < 2 s. No: Edema Neurological: Present: GCS=15, CN II-XII Intact, Speech Normal, Motor Func Grossly Intact, Normal Sensory Function, Normal Cerebellar Funct, Gait Normal Skin: Present: Warm, Dry, Normal Color. No: Rashes Psychiatric: Present: Alert, Oriented x 3, Normal Insight, Normal Concentration Medical Decision Making ED Course and Treatment: 01/24/18 12:32 Dr. Fermin Bethea, PMD agreed with plan to admit patient for intractable abdominal pain, failure to thrive, hypokalemia. He recommended Dr. Luo GI consult. Re-evaluation Time: 12:33 Reassessment Condition: Re-examined, Improving,but remains with symptoms - Lab Interpretations Lab Results: 01/24/18 10:50 01/24/18 10:50 Lab Results 01/24/18 12:00: Urine Color Dark yellow, Urine Appearance Clear, Urine pH 6.5, Ur Specific [place] >= 1.030, Urine Protein 30 H, Urine Glucose (UA) Negative, Urine Ketones 40 H, Urine Blood Negative, Urine Nitrate Positive H, Urine Bilirubin Small H, Urine Urobilinogen 0.2, Ur Leukocyte Esterase Negative, Urine RBC 0 - 2, Urine WBC 1 - 3, Ur Epithelial Cells 6 - 8, Amorphous Sediment Few, Urine Bacteria Many, Hyaline Casts 0 - 2, Fine Granular Casts 0 - 2, Urine Other Fiber 01/24/18 10:50: pO2 73 H, VBG pH 7.41, VBG pCO2 43.0, VBG HCO3 27.3, VBG Total CO2 28.6 H, VBG O2 Sat (Calc) 96.2 H, VBG Base Excess 2.2 H, VBG Potassium 3.0 L , Sodium 135.0, Chloride 97.0 L, Glucose 99, Lactate 1.5, FiO2 21.0, Venous Blood Potassium 3.0 L 01/24/18 10:50: Sodium 138, Chloride 98, Potassium 3.2 L, Carbon Dioxide 24, Anion Gap 20, BUN 15, Creatinine 0.6 L, Est GFR ( Amer) > 60, Est GFR ( Non-Af Amer) > 60, Random Glucose 101, Calcium 10.0, Total Bilirubin 0.8, AST 41 H, ALT 33, Alkaline Phosphatase 62, Total Protein 8.0, Albumin 4.6, Globulin 3.4, Albumin/Globulin Ratio 1.4, Lipase 28 01/24/18 10:50: PT 13.6 H, INR 1.18 H, APTT 30.2 01/24/18 10:50: WBC 7.2, RBC 4.66, Hgb 14.2, Hct 39.5, MCV 84.8 D, MCH 30.5, MCHC 35.9, RDW 11.8, Plt Count 244, MPV 9.5, Gran % 62.0, Lymph % (Auto) 29.9, [place] % (Auto) 7.4 H, Eos % (Auto) 0.4 L, Baso % (Auto) 0.3, Gran # 4.43, Lymph # (Auto) 2.1, [place] # (Auto) 0.5, Eos # (Auto) 0.0, Baso # (Auto) 0.02 I have reviewed the lab results: Yes Interpretation: Abnormal lab values - RAD Interpretation Narrative RAD Interpretations (Text): 01/24/18 12:33 CXR: NAD 01/24/18 12:39 PROCEDURE: CT Abdomen and Pelvis with contrast FINDINGS: LOWER THORAX: Unremarkable. LIVER: Unremarkable. No gross lesion or ductal dilatation. GALLBLADDER AND BILE DUCTS: Unremarkable. PANCREAS: Unremarkable. No gross lesion or ductal dilatation. SPLEEN: Unremarkable. ADRENALS: Unremarkable. No mass. KIDNEYS AND URETERS: Unremarkable. No hydronephrosis. No solid mass. VASCULATURE: Unremarkable. No aortic aneurysm. BOWEL: Unremarkable. No obstruction. No gross mural thickening. APPENDIX: Normal appendix. PERITONEUM: Unremarkable. No free fluid. No free air. LYMPH NODES: Unremarkable. No enlarged lymph nodes. BLADDER: Unremarkable. REPRODUCTIVE: Unremarkable. BONES: No acute fracture. OTHER FINDINGS: None. IMPRESSION: No acute intra-abdominal findings Radiology Orders: 01/24/18 10:20 CHEST PORTABLE [RAD] Stat 01/24/18 10:29 ABD & PELVIS IV CONTRAST ONLY [CT] Stat - Medication Orders Current Medication Orders: Discontinued Medications Sodium Chloride (Sodium Chloride 0.9%) 1,000 mls @ 1,000 mls/hr IV .Q1H STA Stop: 01/24/18 11:19 Last Admin: 01/24/18 10:33 Dose: 1,000 mls/hr eMAR Start Stop Document 01/24/18 10:33 EQ (Rec: 01/24/18 10:33 EQ [id number]) Intravenous Solution Start Date 01/24/18 Start Time 10:33 Morphine Sulfate (Morphine) 2 mg IVP STAT STA Stop: 01/24/18 10:24 Last Admin: 01/24/18 10:32 Dose: 2 mg MAR Pain Assessment Document 01/24/18 10:32 EQ (Rec: 01/24/18 10:32 EQ [id number]) Pain Reassessment Is this a pain reassessment? No Sleep Is patient sleeping during reassessment? No Presence of Pain Presence of Pain Yes IVP Administration Document 01/24/18 10:32 EQ (Rec: 01/24/18 10:32 EQ [id number]) Charges for Administration # of IVP Administrations 1 Ondansetron HCl (Zofran Inj) 4 mg IVP STAT STA Stop: 01/24/18 10:21 Last Admin: 01/24/18 10:31 Dose: 4 mg IVP Administration Document 01/24/18 10:31 EQ (Rec: 01/24/18 10:31 EQ [id number]) Charges for Administration # of IVP Administrations 1 Pantoprazole Sodium (Protonix Inj) 40 mg IVP STAT STA Stop: 01/24/18 10:21 Last Admin: 01/24/18 10:32 Dose: 40 mg IVP Administration Document 01/24/18 10:32 EQ (Rec: 01/24/18 10:32 EQ [id number]) Charges for Administration # of IVP Administrations 1 Potassium Chloride (K-Dur 20 Meq Er Tab) 40 meq PO STAT STA Stop: 01/24/18 11:46 Last Admin: 01/24/18 12:25 Dose: 40 meq Disposition/Present on Arrival - Present on Arrival Any Indicators Present on Arrival: No History of DVT/PE: No History of Uncontrolled Diabetes: No Urinary Catheter: No History of Decub. Ulcer: No History Surgical Site Infection Following: None - Disposition Have Diagnosis and Disposition been Completed?: Yes Diagnosis: Intractable abdominal pain, Failure to thrive, Hypokalemia, Urinary tract infection Disposition: HOSPITALIZED Disposition Time: 12:34 Patient Plan: Admission Patient Problems: Current Active Problems Problem Status Onset Failure to thrive Acute Hypokalemia Acute Intractable abdominal pain Acute Urinary tract infection Acute Condition: STABLE Referrals: Fermin Bethea MD [Primary Care Provider] - Follow up with primary Forms: [employer] (Mongolian)
[2018-01-24] MEDS ORDERED: Morphine 2 mg/ml ISec IVP STA (10:23)
[2018-01-24] MEDS ORDERED: Iohexol 350 MG/100 ML VIAL ONE (10:36)
[2018-01-24 11:04] LABS: VENOUS BLOOD GAS BASE EXCESS 2.2 mmol/L (0.0-2.0); VENOUS BLOOD GAS PO2 73 mm/Hg (30-55); VENOUS BLOOD PH 7.41 (7.32-7.43)
[2018-01-24 11:08] LABS: BASO # 0.02 K/mm3 (0.0-2.0); BASO % 0.3 % (0.0-3.0); EOS % 0.4 % (1.5-5.0); GRAN # 4.43 (1.4-6.5); HEMOGLOBIN 14.2 g/dL (12.0-16.0); LYMPH # 2.1 (1.2-3.4); LYMPH % 29.9 % (22.0-35.0); MEAN CELL VOLUME 84.8 fl (80.0-105.0); MEAN CORPUSCULAR HEMOGLOBIN 30.5 pg (25.0-35.0); MEAN CORPUSCULAR HGB CONC 35.9 g/dl (31.0-37.0); MEAN PLATELET VOLUME 9.5 fl (7.0-11.0); MONO # 0.5 (0.1-0.6); MONO % 7.4 % (1.0-6.0); RBC 4.66 10^6/uL (3.5-6.1); RED CELL DISTRIBUTION WIDTH 11.8 % (11.5-14.5); WHITE BLOOD COUNT 7.2 10^3/ul (4.5-11.0)
[2018-01-24 11:19] LABS: INR 1.18 (0.93-1.08); PARTIAL THROMBOPLASTIN TIME 30.2 Seconds (25.1-36.5); PROTHROMBIN TIME 13.6 SECONDS (9.4-12.5)
[2018-01-24 11:28] LABS: ALB/GLOB RATIO 1.4 (1.1-1.8); ALBUMIN 4.6 g/dL (3.0-4.8); ALT/SGPT 33 U/L (7-56); AST/SGOT 41 U/L (14-36); BLOOD UREA NITROGEN 15 mg/dL (7-21); GFR AFRICAN-AMERICAN > 60; GFR NON-AFRICAN AMERICAN > 60; LIPASE 28 U/L (23-300)
[2018-01-24] MEDS ORDERED: Potassium Chloride 20 mEq ER Tab PO STA (11:45)
[2018-01-24 12:19] LABS: PH,URINE 6.5 (4.7-8.0); URINE APPEARANCE CLEAR (CLEAR); URINE BILIRUBIN SMALL (NEGATIVE); URINE BLOOD NEGATIVE (NEGATIVE); URINE COLOR DARK YELLOW (YELLOW); URINE GLUCOSE (UA) NEGATIVE (NEGATIVE); URINE LEUKOCYTE ESTERASE NEGATIVE Leu/uL (NEGATIVE); URINE PROTEIN 30 mg/dL (<30 mg/dL); URINE UROBILINOGEN 0.2 E.U./dL (<1 E.U./dL)
[2018-01-24 12:24] LABS: URINE BACTERIA MANY (NEG); URINE HYALINE CAST 0 - 2 /hpf; URINE RBC 0 - 2 /hpf (0-2)
[2018-01-24 12:25] LABS: URINE AMORPHOUS SEDIMENT FEW; URINE FINE GRANULAR CAST 0 - 2 /hpf (0-2)
--- NOTE | 2018-01-24 12:32 | RAD ---
HISTORY: for admission COMPARISON: No prior. FINDINGS: LUNGS: No active pulmonary disease. PLEURA: No significant pleural effusion identified, no pneumothorax apparent. CARDIOVASCULAR: Normal. OSSEOUS STRUCTURES: No significant abnormalities. VISUALIZED UPPER ABDOMEN: Normal. OTHER FINDINGS: None. IMPRESSION: No active disease. Concordant results with the preliminary interpretation rendered by the emergency department physician procedure.
[2018-01-24] MEDS ORDERED: cefTRIAXone 1 gm 1 GM/100 ML BAG IVPB STA (12:34)
--- NOTE | 2018-01-24 12:39 | CT ---
PROCEDURE: CT Abdomen and Pelvis with contrast HISTORY: generalized abdom. pain and n/v/d COMPARISON: 12/18/2017 TECHNIQUE: Contrast dose: 100 cc of Omni 350 Radiation dose: Total exam DLP = 172 mGy-cm. This CT exam was performed using one or more of the following dose reduction techniques: Automated exposure control, adjustment of the mA and/or kV according to patient size, and/or use of iterative reconstruction technique. FINDINGS: LOWER THORAX: Unremarkable. LIVER: Unremarkable. No gross lesion or ductal dilatation. GALLBLADDER AND BILE DUCTS: Unremarkable. PANCREAS: Unremarkable. No gross lesion or ductal dilatation. SPLEEN: Unremarkable. ADRENALS: Unremarkable. No mass. KIDNEYS AND URETERS: Unremarkable. No hydronephrosis. No solid mass. VASCULATURE: Unremarkable. No aortic aneurysm. BOWEL: Unremarkable. No obstruction. No gross mural thickening. APPENDIX: Normal appendix. PERITONEUM: Unremarkable. No free fluid. No free air. LYMPH NODES: Unremarkable. No enlarged lymph nodes. BLADDER: Unremarkable. REPRODUCTIVE: Unremarkable. BONES: No acute fracture. OTHER FINDINGS: None. IMPRESSION: No acute intra-abdominal findings
[2018-01-24] MEDS ORDERED: Influenza Vaccine 60 mcg/0.5 mL SYR (4YR UP) IM ONE (16:35)
[2018-01-24] MEDS ORDERED: Pneumococcal 23-Valent Vaccine IM ONE (16:35)
--- NOTE | 2018-01-24 17:18 | CARD ---
APPROVED REPORT EKG Measurement Heart [id number] IL [id number] <Conclusion> Normal sinus rhythm Biatrial enlargement
--- NOTE | 2018-01-24 20:12 | CP.PCM.PN ---
Subjective - Date & Time of Evaluation Date of Evaluation: 01/24/18 Time of Evaluation: 20:11 - Subjective Subjective: Patient was seen at bedside. She had requested a nicotine patch. Has no other complaints. Denies chest pain , sob,nausea. Medical record was reviewed. This 57 year old woman was admitted with nausea, vomiting, abdominal discomfort for past month,hypokalemia. Has PMH of gastritis,smoker, substance abuse history, appendectomy. Later on, she requested for a sleeping pill.(09:58PM) Objective - Vital Signs/Intake and Output Vital Signs (last 24 hours): Temp Pulse Resp BP Pulse Ox 98.3 F 72 16 110/66 99 01/24/18 09:54 01/24/18 13:48 01/24/18 16:10 01/24/18 13:48 01/24/18 13:48 - Labs Labs: PT 13.6 SECONDS (9.4-12.5) H 01/24/18 10:50 INR 1.18 (0.93-1.08) H 01/24/18 10:50 APTT 30.2 Seconds (25.1-36.5) 01/24/18 10:50 Most Recent Lab Values WBC 7.2 10^3/ul (4.5-11.0) 01/24/18 10:50 RBC 4.66 10^6/uL (3.5-6.1) 01/24/18 10:50 Hgb 14.2 g/dL (12.0-16.0) 01/24/18 10:50 Hct 39.5 % (36.0-48.0) 01/24/18 10:50 MCV 84.8 fl (80.0-105.0) D 01/24/18 10:50 MCH 30.5 pg (25.0-35.0) 01/24/18 10:50 MCHC 35.9 g/dl (31.0-37.0) 01/24/18 10:50 RDW 11.8 % (11.5-14.5) 01/24/18 10:50 Plt Count 244 10^3/uL (120.0-450.0) 01/24/18 10:50 MPV 9.5 fl (7.0-11.0) 01/24/18 10:50 Gran % 62.0 % (50.0-68.0) 01/24/18 10:50 Lymph % (Auto) 29.9 % (22.0-35.0) 01/24/18 10:50 [place] % (Auto) 7.4 % (1.0-6.0) H 01/24/18 10:50 Eos % (Auto) 0.4 % (1.5-5.0) L 01/24/18 10:50 Baso % (Auto) 0.3 % (0.0-3.0) 01/24/18 10:50 Gran # 4.43 (1.4-6.5) 01/24/18 10:50 Lymph # (Auto) 2.1 (1.2-3.4) 01/24/18 10:50 [place] # (Auto) 0.5 (0.1-0.6) 01/24/18 10:50 Eos # (Auto) 0.0 (0.0-0.7) 01/24/18 10:50 Baso # (Auto) 0.02 K/mm3 (0.0-2.0) 01/24/18 10:50 PT 13.6 SECONDS (9.4-12.5) H 01/24/18 10:50 INR 1.18 (0.93-1.08) H 01/24/18 10:50 APTT 30.2 Seconds (25.1-36.5) 01/24/18 10:50 pO2 73 mm/Hg (30-55) H 01/24/18 10:50 VBG pH 7.41 (7.32-7.43) 01/24/18 10:50 VBG pCO2 43.0 (40-60) 01/24/18 10:50 VBG HCO3 27.3 mmol/l (21-28) 01/24/18 10:50 VBG Total CO2 28.6 mmol.L (22-28) H 01/24/18 10:50 VBG O2 Sat (Calc) 96.2 % (40-65) H 01/24/18 10:50 VBG Base Excess 2.2 mmol/L (0.0-2.0) H 01/24/18 10:50 VBG Potassium 3.0 mmol/L (3.6-5.2) L 01/24/18 10:50 Sodium 135.0 mmol/L (132-148) 01/24/18 10:50 Chloride 97.0 mmol/L (98-107) L 01/24/18 10:50 Glucose 99 mg/dl (65-105) 01/24/18 10:50 Lactate 1.5 mmol/L (0.7-2.1) 01/24/18 10:50 FiO2 21.0 % 01/24/18 10:50 Sodium 138 mmol/L (132-148) 01/24/18 10:50 Potassium 3.2 mmol/L (3.6-5.0) L 01/24/18 10:50 Chloride 98 mmol/L (98-107) 01/24/18 10:50 Carbon Dioxide 24 mmol/L (21-33) 01/24/18 10:50 Anion Gap 20 (10-20) 01/24/18 10:50 BUN 15 mg/dL (7-21) 01/24/18 10:50 Creatinine 0.6 mg/dl (0.7-1.2) L 01/24/18 10:50 Est GFR ( Amer) > 60 01/24/18 10:50 Est GFR (Non-Af Amer) > 60 01/24/18 10:50 Random Glucose 101 mg/dL (70-110) 01/24/18 10:50 Calcium 10.0 mg/dL (8.4-10.5) 01/24/18 10:50 Total Bilirubin 0.8 mg/dL (0.2-1.3) 01/24/18 10:50 AST 41 U/L (14-36) H 01/24/18 10:50 ALT 33 U/L (7-56) 01/24/18 10:50 Alkaline Phosphatase 62 U/L (38-126) 01/24/18 10:50 Total Protein 8.0 g/dL (5.8-8.3) 01/24/18 10:50 Albumin 4.6 g/dL (3.0-4.8) 01/24/18 10:50 Globulin 3.4 gm/dL 01/24/18 10:50 Albumin/Globulin Ratio 1.4 (1.1-1.8) 01/24/18 10:50 Lipase 28 U/L (23-300) 01/24/18 10:50 Venous Blood Potassium 3.0 mmol/L (3.6-5.2) L 01/24/18 10:50 Urine Color Dark yellow (YELLOW) 01/24/18 12:00 Urine Appearance Clear (CLEAR) 01/24/18 12:00 Urine pH 6.5 (4.7-8.0) 01/24/18 12:00 Ur Specific [place] >= 1.030 (1.005-1.035) 01/24/18 12:00 Urine Protein 30 mg/dL (<30 mg/dL) H 01/24/18 12:00 Urine Glucose (UA) Negative mg/dL (NEGATIVE) 01/24/18 12:00 Urine Ketones 40 mg/dL (NEGATIVE) H 01/24/18 12:00 Urine Blood Negative (NEGATIVE) 01/24/18 12:00 Urine Nitrate Positive (NEGATIVE) H 01/24/18 12:00 Urine Bilirubin Small (NEGATIVE) H 01/24/18 12:00 Urine Urobilinogen 0.2 E.U./dL (<1 E.U./dL) 01/24/18 12:00 Ur Leukocyte Esterase Negative Singh/uL (NEGATIVE) 01/24/18 12:00 Urine RBC 0 - 2 /hpf (0-2) 01/24/18 12:00 Urine WBC 1 - 3 /hpf (0-6) 01/24/18 12:00 Ur Epithelial Cells 6 - 8 /hpf (0-5) 01/24/18 12:00 Amorphous Sediment Few 01/24/18 12:00 Urine Bacteria Many (NEG) 01/24/18 12:00 Hyaline Casts 0 - 2 /hpf 01/24/18 12:00 Fine Granular Casts 0 - 2 /hpf (0-2) 01/24/18 12:00 Urine Other Fiber 01/24/18 12:00 Urine Opiates Screen Cancelled 01/24/18 12:45 Urine Methadone Screen Cancelled 01/24/18 12:45 Ur Barbiturates Screen Cancelled 01/24/18 12:45 Ur Phencyclidine Scrn Cancelled 01/24/18 12:45 Ur Amphetamines Screen Cancelled 01/24/18 12:45 U Benzodiazepines Scrn Cancelled 01/24/18 12:45 U Oth Cocaine Metabols Cancelled 01/24/18 12:45 U Cannabinoids Screen Cancelled 01/24/18 12:45 - Constitutional Appears: Well, No Acute Distress - Head Exam Head Exam: ATRAUMATIC, NORMAL INSPECTION, NORMOCEPHALIC - Eye Exam Eye Exam: Normal appearance - ENT Exam ENT Exam: Normal External Ear Exam - Neck Exam Neck Exam: Normal Inspection - Respiratory Exam Respiratory Exam: NORMAL BREATHING PATTERN - Cardiovascular Exam Cardiovascular Exam: absent: JVD - GI/Abdominal Exam GI & Abdominal Exam: absent: Distended - Rectal Exam Rectal Exam: Deferred - Exam Additional comments: Deferred. - Extremities Exam Extremities Exam: Normal Inspection - Back Exam Back Exam: NORMAL INSPECTION - Neurological Exam Neurological Exam: Alert, Awake, Oriented x3 - Psychiatric Exam Psychiatric exam: Normal Affect, Normal Mood - Skin Skin Exam: Normal Color Assessment and Plan - Assessment and Plan (Free Text) Assessment: Tobacco dependence/withdrawal. Insomnia. Abdominal pain. Gastroenteritis. Smoker . History of substance abuse. Hypokalemia. Plan: Nicotine patch as ordered. Benadryl 25 mg PO x 1. Continue present management.
[2018-01-25 08:25] LABS: BARBITURATES, UR NEGATIVE (NEGATIVE); BENZODIAZEPINES, UR NEGATIVE (NEGATIVE); OPIATES, UR POSITIVE (NEGATIVE); PHENCYCLIDINE, UR NEGATIVE (NEGATIVE)
--- NOTE | 2018-01-26 02:50 | PN ---
DATE: 01/25/2018 SUBJECTIVE: The patient was seen this morning in room 570, bed 2, out of bed, ambulatory, not wanting to eat. Her abdominal pain subsided. Case was discussed with Dr. Luo. We have scheduled an endoscopy. She is on proton pump inhibitor and H2-raudel. I had talked to the patient regarding the workup and her 's concern about her diet and not eating. We will continue medications and work up as outlined above and reevaluate in the morning. We will discharge to home soon. Jacob Bethea MD
--- NOTE | 2018-01-26 06:14 | CON ---
DATE: 01/25/2018 HISTORY OF PRESENT ILLNESS: This 57-year-old patient was recently in the hospital admitted, presented to the emergency room with complaints of increasing cramping abdominal pain and vomiting and nausea. Patient was in the hospital last month with similar complaints. She told me that she was doing well after a course of antibiotics upon discharge. Then she said that her daughter had similar symptoms and she got it back. No history of any bleeding per rectum. No vomiting. No fever. On last admission, patient had an ultrasound scan which done showed borderline CBD, and then MRCP done, which was negative, and also found to have a small hyperdense lesion in the liver, and MRI suggestive of hemangioma. PAST MEDICAL HISTORY: Other past medical history as above. History of appendicectomy. FAMILY HISTORY: Noncontributory. SOCIAL HISTORY: Smokes about 10 cigarettes per day. Denies alcohol use. REVIEW OF SYSTEMS: Positive as above. Other systems reviewed, negative. PHYSICAL EXAMINATION: GENERAL: Patient is lying on the bed. Not in acute distress. VITAL SIGNS: Temperature is 98, blood pressure is 120/78, respirations 18, O2 saturation is 100%. HEENT: Atraumatic, anicteric. NECK: Supple. HEART: S1, S2 heard. LUNGS: Bilateral air entry present. ABDOMEN: Soft. There is tenderness at the epigastric and right upper quadrant area. There is no rebound or guarding. EXTREMITIES: No edema. No cyanosis. NEUROLOGIC: Alert and oriented. Moves all the extremities. LABORATORY DATA: Hemoglobin 14.2, hematocrit 39.5, WBC 7.2, platelets 245. Chemistry is normal except for potassium of 3.2, supplemented. Patient had a CT scan of the abdomen and pelvis done with IV contrast only, which reported no acute findings. IMPRESSION: This 57-year-old patient admitted again with abdominal pain, nausea, and vomiting. Patient had also episodes of diarrhea before. In the last admission, there was some thickening of the ascending colon noticed. There is some pericolonic streaking. The differential diagnosis include acute gastroenteritis, inflammatory bowel disease, peptic ulcer disease to be considered also. PLAN: 1. Patient would benefit from upper GI endoscopy to further evaluate. 2. PTI. 3. Clear liquid diet. 4. I will continue to closely follow up her care and suggest further management based on the clinical course. I did discuss with Dr. Jacob Bethea regarding this patient earlier. Rolando Luo MD
[2018-01-26] MEDS ORDERED: Pantoprazole 40 mg EC Tab PO SCH (07:30)
[2018-01-26] MEDS ORDERED: Potassium Chloride 10 mEq ER Tab PO SCH (08:00)
[2018-01-26 08:34] VITALS: BP 115/77; PULSE 68; RESP 19; TEMP 98.6; O2SAT 99
--- NOTE | 2018-01-26 11:08 | CP.PCM.PN ---
Subjective - Date & Time of Evaluation Date of Evaluation: 01/26/18 Time of Evaluation: 09:45 - Subjective Subjective: Seen and examined at the bedside earlier today, chart reviewed. No acute overnight events reported. Patient denies nausea, vomiting and resolved abdominal pain. Last BM was on Monday. Patient tolerating oral intake no postprandial pain. Objective - Vital Signs/Intake and Output Vital Signs (last 24 hours): Temp Pulse Resp BP Pulse Ox 98.6 F 68 19 115/77 99 01/26/18 08:00 01/26/18 08:00 01/26/18 08:00 01/26/18 08:00 01/26/18 08:00 Intake and Output: 01/26/18 01/26/18 06:59 18:59 Intake Total 720 Output Total 0 Balance 720 - Medications Medications: Current Medications Famotidine (Pepcid) 20 mg PO Q12 [facility] Last Admin: 01/26/18 09:45 Dose: 20 mg Ondansetron HCl (Zofran Tab) 4 mg PO Q8H [facility] Last Admin: 01/25/18 21:07 Dose: Not Given Pantoprazole Sodium (Protonix Ec Tab) 40 mg PO 0600 [facility] Pantoprazole Sodium (Protonix Ec Tab) 40 mg PO ACB [facility] Last Admin: 01/26/18 09:47 Dose: 40 mg Potassium Chloride (Klor-Con 10) 10 meq PO BRK [facility] Last Admin: 01/26/18 09:45 Dose: 10 meq - Labs Labs: PT 13.6 SECONDS (9.4-12.5) H 01/24/18 10:50 INR 1.18 (0.93-1.08) H 01/24/18 10:50 APTT 30.2 Seconds (25.1-36.5) 01/24/18 10:50 - Constitutional Appears: No Acute Distress - Head Exam Head Exam: NORMOCEPHALIC - Eye Exam Eye Exam: Normal appearance. absent: Scleral icterus - ENT Exam ENT Exam: Mucous Membranes Moist - Neck Exam Neck Exam: Normal Inspection - Respiratory Exam Respiratory Exam: NORMAL BREATHING PATTERN. absent: Respiratory Distress - Cardiovascular Exam Cardiovascular Exam: +S1, +S2 - GI/Abdominal Exam GI & Abdominal Exam: Soft, Normal Bowel Sounds. absent: Guarding, Tenderness, Organomegaly, Rebound - Extremities Exam Extremities Exam: absent: Calf Tenderness, Pedal Edema - Neurological Exam Neurological Exam: Alert, Awake, Oriented x3 Assessment and Plan - Assessment and Plan (Free Text) Assessment: ASSESSMENT: Resolved abdominal pain Resolved N/V/Dairrhea, differential gastroenteritis/IBD or PUD H/O hemangioma, recent MRI (2018) PLAN: diet as tolerated continue PPI on protonix in AM and Pepcid in PM discuss w/ patient would benefit from EGD with recent complaints and colonoscopy , never had before. This can be done electively as outpatient unless otherwise indicated. Possible DC home. Seen and discussed w/ Dr. Luo.
--- NOTE | 2018-01-26 21:31 | HP ---
HISTORY OF PRESENT ILLNESS: The patient is a 57-year-old female who was seen in the emergency room at her 's bedside, her was actually being evaluated for admission with a possible pneumonia. She, however, appeared very thin, lost a bit of weight since the last time I saw her and according to the , had been complaining of nausea and vomiting over the past several days. The patient has been hospitalized about four times over the past 6 months with GI symptoms. She was therefore encouraged to present to the triage office for evaluation and admission to the emergency room. She was seen, evaluated, and admitted once again to the [facility]. The patient's seems to have chronic nausea and vomiting. At times in the past, it was attributed to some fast food that was eaten. This time, the patient states that she can swallow food. It is, however, liquids that she cannot swallow and continues to vomit. PAST MEDICAL HISTORY: She has no other past medical history. SOCIAL HISTORY: She continues to smoke cigarettes. She is a nonalcoholic drinker. She is in menopause. ALLERGIES: SHE HAS NO KNOWN MEDICAL ALLERGIES. MEDICATIONS: She was not taking any medications at the time of admission. REVIEW OF SYSTEMS: Otherwise negative. PHYSICAL EXAMINATION: HEAD, EYES, EARS, NOSE, AND THROAT: Unremarkable. NECK: Supple with no lymphadenopathy. No goiter. LUNGS: Clear to auscultation and percussion. HEART: Regular. No murmurs, gallops, or rubs are appreciated. ABDOMEN: Diffusely tender. Bowel sounds are normal. EXTREMITIES: Free of cyanosis, clubbing, or edema. NEUROLOGIC: She is awake, alert, and oriented with no focal neurological signs. VITAL SIGNS: Blood pressure is 114/81, heart rate is 106, and she is afebrile at 98.3 degrees Fahrenheit. LABORATORY DATA: Her laboratory studies are basically unremarkable. The white blood cell count is 7.2, hemoglobin and hematocrit are 14.2 and 39.5 respectively, and platelet count is 244. Sodium is 138, potassium is mildly depressed at 3.2. Blood urea nitrogen is 15, creatinine is low at 0.6. Urinalysis shows urinary protein to be elevated, urinary ketones are elevated, urine nitrites are positive, and there is small amount of bilirubin; however, the white blood cell counts are only 1 to 3 per high-power field and red blood cells are 0 to 2 per high-power field. CAT scan of the abdomen is ordered and it is essentially negative. In the past, the CAT scan has at times been also negative and sometimes showed thickening of the stomach or thickening of the intestines suggestive of gastritis or enteritis. As this seems to be a prolonged condition for this patient, once again she is admitted. We are asking Dr. Luo to consult on the patient and hopefully find a solution to the abdominal complaints plaguing this unfortunate female. Fermin Bethea MD
--- NOTE | 2018-01-27 04:24 | DS ---
HISTORY OF PRESENT ILLNESS: This is a 57-Year-old woman who was hospitalized approximately 2 or 3 months ago with abdominal pain, gastritis after reportedly eating at a fast food restaurant. For this admission, she comes to emergency room again, this time with her , complaining of not being able to eat and upper abdominal symptoms. She denies black tarry stools, melena, and vomiting. She does admit to some nausea. PAST MEDICAL HISTORY: Essentially noncontributory. She says she does not take any medications at home, although she was advised to take a proton pump inhibitor or H2 raudel since the last hospitalization. COURSE OF HOSPITAL STAY: Admitted to medical floor. The patient was treated with IV fluids, proton pump inhibitor/H2 blockers. GI consultation with Dr. Luo was called. The patient is a bit difficult at times, although always very pleasant. She often refused medications by the nurse. Did not want further workup or endoscopy. CT scan was unremarkable. Labs were essentially normal. She asked to not have an upper endoscopy performed as suggested, but would rather do it as an outpatient; and so she was discharged to home. In the discharge process, I instructed her at great length about the importance of taking her medications for acid in the stomach, and how this as well as her last hospital stay may have been related to acid, gastritis, peptic ulcer disease. I also counseled her on the results of some of her tests including the positive opioids and THC in urine toxicology screen. She was surprised to know that this was positive and asked her to not be called on these findings. FINAL DISCHARGE DIAGNOSES: 1. Gastritis/peptic ulcer disease. 2. Noncompliance. 3. Recreational schedule 1 use. Jacob Bethea MD
[2018-01-27] MEDS ORDERED: Pantoprazole 40 mg EC Tab PO SCH (06:00)
== END 2018-01-26 11:53 | disposition home or self-care (01) | DRG 384 ==
LOC: ED 09:46 → ERH 12:30 → 5RSO 14:23
PROVIDERS: ADMIT Internal Medicine; ATTEND Internal Medicine
DX: K27.9 Peptic ulcer, site unspecified, unspecified as acute or chronic, without hemorrhage or perforation (principal); E87.6 Hypokalemia; N39.0 Urinary tract infection, site not specified; K29.70 Gastritis, unspecified, without bleeding; R62.7 Adult failure to thrive; F17.210 Nicotine dependence, cigarettes, uncomplicated; Z90.49 Acquired absence of other specified parts of digestive tract; Z91.19 Patient's noncompliance with other medical treatment and regimen; G47.00 Insomnia, unspecified